=== PATIENT | male | born 2000 | race Caucasian/White ===

== ENCOUNTER 2019-12-10 18:04 | Emergency (ER) | payer BC, SELFPAY ==
[2019-12-10 18:05] VITALS: BP 124/76; PULSE 91; RESP 18; TEMP 36.4; O2SAT 98; BMI 22.3
[2019-12-10 18:38] VITALS: BP 124/76; PULSE 91; RESP 18; TEMP 36.4; O2SAT 98; BMI 22.4
--- NOTE | 2019-12-10 18:55 | HMH.EDUTC ---
[facility] Disposition Clinical Impression: Laceration of left hand Qualifiers: Encounter type: initial encounter Foreign body presence: without foreign body Qualified Code(s): S61.412A - Laceration without foreign body of left hand, initial encounter Disposition: Home, Self-Care Condition on Discharge: Good Instructions: How to Care for a Laceration After Repair, DI for Laceration Repair -- Complex Suture Additional Instructions: Keep the wound clean and dry. Keep a dressing on it if you are going to be getting it dirty. Watch the for signs of infection, such as redness, swelling, drainage, fever. etc. Take tylenol or ibuprofen for pain. Follow up with your regular doctor. Return in 10 days to have the sutures removed. GO TO THE ER FOR ANY WORSENING SYMPTOMS OR CONCERNS. Prescriptions: cephALEXin [Keflex 500mg Cap] 500 mg PO Q6H 10 Days #40 cap Transmission Status: Received by [facility] # [id number] Referrals: Provider,Referral, MD [Primary Care Provider] - Forms: Work/School Release Time of Disposition: 19:46 Medical Decision Making - Medical Records Medical records reviewed: No: I reviewed the patient's medical records. - Jose Inquiry Pt receiving controlled substance: No Vital Signs: 12/10/19 18:05 12/10/19 18:38 12/10/19 19:30 Temperature 97.6 F 97.6 F 97.6 F Temperature Source Oral Oral Pulse Rate 91 H Pulse Rate [Right Radial] 91 H 91 H Respiratory Rate 18 18 18 Blood Pressure 124/76 Blood Pressure [Right Arm] 124/76 124/76 Blood Pressure Mean [Right Arm] 92 92 Blood Pressure Source [Right Arm] Automatic Cuff Automatic Cuff Blood Pressure Position [Right Arm] Sitting Sitting 02 Sat by Pulse Oximetry 98 98 Oxygen Delivery Method Room Air Room Air Orders (Tests/Meds): ED MEDICATIONS Discontinued Medications Generic Name Dose Route Start Last Admin Trade Name Freq PRN Reason Stop Dose Admin Ibuprofen 800 mg 12/10/19 18:56 12/10/19 19:00 Motrin 400mg Tablet PO 12/10/19 18:57 800 mg ONCE ONE Administration Tetanus/Reduced Diphtheria/Acell Pertussis 0.5 ml 12/10/19 18:42 12/10/19 19:00 Adacel Tdap 0.5ml Syringe IM 12/10/19 18:43 0.5 ml .ONCE ONE Administration [facility] HPI - General Stated complaint: AO 06 1600 lac to L hand Time Seen by Provider: 12/10/19 18:55 Mode of Arrival: Ambulatory Source of Information: Patient Limitations: No Limitations Description of Symptoms (Recalled from Triage Doc. by RN): PT PRESENTS WITH LAC TO LT PALM AFTER TRIPPING AND TRYING TO CATCH HIMSELF ON A WALL WHERE HE SLID HIS HAND AGAINST A NAIL; PATIENT IS NOT UP TO DATE ON HIS TETANUS VACCINE HEENT Symptoms (Recalled from RN notes): No Resp Symptoms (Recalled from RN notes): No Skin Symptoms (Recalled from RN notes): Yes MS Symptoms (Recalled from RN notes): No Functional Status (Recalled from RN notes): WNL - History of Present Illness Provider Complaint: He states that earlier this evening he tripped and caught himself with the wall. When he did this, his left hand rubbed across a nail that was sticking up. He recieved a 1.5 cm lacerion to the palm of his left hand. - Related Data Previous Rx's Medication Instructions Recorded cephALEXin [Keflex 500mg Cap] 500 mg PO Q6H 10 Days #40 cap 12/10/19 Allergies Allergy/AdvReac Type Severity Reaction Status Date / Time No Known Allergies Allergy Verified 12/10/19 18:41 - Worker's Comp Is this a Worker's Comp case?: No [facility] History - Hepatitis A Screen Drug use history?: No High risk sexual behaviors?: No History of sexually transmitted infection?: No Currently employed?: No Childcare worker?: No Do you have indoor plumbing?: Yes Do you have electricity?: Yes Attestation statement:: This patient has been screened for Hepatitis A risk factors. I have reviewed the patient's past medical history: Yes - Social History Smoking Status: Current every day smoker Tobacco Type:
[2019-12-10 19:30] VITALS: BP 124/76; PULSE 91; RESP 18; TEMP 36.4; O2SAT 98
== END 2019-12-10 19:53 | disposition home or self-care (01) ==
PROVIDERS: Emergency Provider Nurse Practitioner Family
DX: S61.412A Laceration without foreign body of left hand, initial encounter (principal); W22.8XXA Striking against or struck by other objects, initial encounter; Y92.9 Unspecified place or not applicable; Z23 Encounter for immunization; F17.210 Nicotine dependence, cigarettes, uncomplicated
CPT/HCPCS: 12001; 90471; 90715; 99201